=== PATIENT | male | born 1935 | race Caucasian/White ===

== ENCOUNTER 2017-11-03 09:10 | Day surgery (SDC) | payer MEDICARE, MEDICAID ==
[~2017-11-03] VITALS: Ht 175.3 cm; Wt 81.7 kg
[2017-11-03] VITALS (11 sets, daily range): BP systolic 113–150; BP diastolic 57–75
[2017-11-03] MEDS ORDERED: sod bicarbonate 150mEq in D5W 1,150 ML IV ONE (09:30)
[2017-11-03 09:44] LABS: ALBUMIN 3.6 G/DL (3.4-5.0); ANION GAP 5 (8-16); BLOOD UREA NITROGEN 24 MG/DL (7-18); CALCIUM 8.7 MG/DL (8.5-10.1); CHLORIDE 105 MMOL/L (99-107); CREATININE 0.89 MG/DL (0.60-1.10); GLUCOSE 94 MG/DL (70-104); PROTHROMBIN TIME 10.7 SECONDS (9.0-12.0); SODIUM 142 MMOL/L (135-145); eGFR 82 ML/MIN
[2017-11-03 09:45] LABS: BASOPHILS % (AUTO) 0.6 % (0-1); EOSINOPHILS # (AUTO) 0.1 X10'3 (0-0.9); EOSINOPHILS % (AUTO) 2.3 % (0-6); LYMPHOCYTES # (AUTO) 0.8 X10'3 (1.1-4.8); LYMPHOCYTES % (AUTO) 15.1 % (21-51); MEAN CORPUSCULAR HEMOGLOBIN 31.2 PG (27.0-31.0); MEAN CORPUSCULAR HGB CONC 33.4 % (33.0-36.5); MEAN CORPUSCULAR VOLUME 93.5 FL (78-98); MEAN PLATELET VOLUME 8.4 FL (7.4-10.4); MONOCYTES # (AUTO) 0.5 X10'3 (0-0.9); MONOCYTES % (AUTO) 8.4 % (2-12); NEUTROPHILS # (AUTO) 4.1 X10'3 (1.8-7.7); NEUTROPHILS % (AUTO) 73.6 % (42-75); PRE OP HEMATOCRIT 39.6 % (42.0-52.0); PRE OP HEMOGLOBIN 13.2 g/dL (14.0-17.9); PRE OP PLATELET COUNT 188 X10'3 (140-440); RED BLOOD COUNT 4.24 X10'6 (4.70-6.10); RED CELL DISTRIBUTION WIDTH 13.3 % (11.5-14.5)
[2017-11-03] MEDS ORDERED: midazolam 2 mg/2 ml injection ONE (10:30)
[2017-11-03] MEDS ORDERED: AMIO200T40 PO (10:30)
[2017-11-03] MEDS ORDERED: heparin 1,000unit/ml 10ml vial 10 ML ONE (10:31)
[2017-11-03] MEDS ORDERED: iohexol 350MG/ML 100ml bottle IV ONE ×2 (10:31→11:42)
[2017-11-03] MEDS ORDERED: ATOR40TA PO (10:31)
[2017-11-03] MEDS ORDERED: LIDOcaine 1% 30ml preserv. free vial ONE (10:31)
[2017-11-03] MEDS ORDERED: iohexol 350 MG/ML 50ML vial IV ONE (10:31)
[2017-11-03] MEDS ORDERED: fentaNYL/PF 50MCG/1 ML 2ML syringe ONE (10:31)
[2017-11-03] MEDS ORDERED: CLOP75TA15 PO (10:31)
[2017-11-03] MEDS ORDERED: ISOS60TA4 PO (10:33)
[2017-11-03] MEDS ORDERED: FLO0.4C PO (10:34)
[2017-11-03] MEDS ORDERED: normal saline 1000ml 1,000 ML IV ONE (13:25)
== END 2017-11-03 19:20 | disposition home or self-care (01) ==
LOC: SSTAY O 09:10
PROVIDERS: ATTEND Internal Medicine Cardiovascular Disease
DX: I70.213 Atherosclerosis of native arteries of extremities with intermittent claudication, bilateral legs (principal); I25.810 Atherosclerosis of coronary artery bypass graft(s) without angina pectoris; E78.5 Hyperlipidemia, unspecified; I10 Essential (primary) hypertension; M17.0 Bilateral primary osteoarthritis of knee; M16.11 Unilateral primary osteoarthritis, right hip; F03.90 Unspecified dementia, unspecified severity, without behavioral disturbance, psychotic disturbance, mood disturbance, and anxiety; I42.0 Dilated cardiomyopathy; N40.0 Benign prostatic hyperplasia without lower urinary tract symptoms; Z95.0 Presence of cardiac pacemaker; Z95.1 Presence of aortocoronary bypass graft; Z88.1 Allergy status to other antibiotic agents; Z79.01 Long term (current) use of anticoagulants; Z79.899 Other long term (current) drug therapy; Z98.890 Other specified postprocedural states; Z82.49 Family history of ischemic heart disease and other diseases of the circulatory system
CPT/HCPCS: 36415; 37226; 75716; 80048; 85025; 85347; 85610; 93005; A6257; A6258; A6402; A6449; C1760; C1769; C1876; C1894; C2623; J1644; J2250; J3010; J3490; J7030; Q9967; A4620

== ENCOUNTER 2017-11-04 06:27 | Emergency (ER) | payer MEDICARE, MEDICAID ==
[~2017-11-04] VITALS: Ht 175.3 cm; Wt 79.5 kg
[~2017-11-04 06:27] MED LIST: AMIO200T40 PO; ATOR40TA PO; CLOP75TA15 PO; FLO0.4C PO; ISOS60TA4 PO
[2017-11-04 09:02] VITALS: BP 149/90
== END 2017-11-04 09:04 | disposition home or self-care (01) ==
LOC: ER 06:28
DX: L76.22 Postprocedural hemorrhage of skin and subcutaneous tissue following other procedure (principal); Z95.5 Presence of coronary angioplasty implant and graft; Z88.1 Allergy status to other antibiotic agents; Z79.899 Other long term (current) drug therapy
CPT/HCPCS: 99284; A6257; A6449

== ENCOUNTER 2018-12-15 09:26 | Day surgery (SDC) | payer MEDICARE, MEDICAID ==
[2018-12-10 11:22] LABS: CLARITY,URINE CLEAR (Clear); COLOR,URINE YELLOW (Yellow); GLUCOSE, URINE NEGATIVE (Neg); KETONES,URINE NEGATIVE (Neg); LEUKOCYTE ESTERASE ,URINE NEGATIVE (Neg); NITRITES, URINE NEGATIVE (Neg); OCCULT BLOOD,URINE NEGATIVE (Neg); PROTEIN,URINE NEGATIVE (Neg); UROBILINOGEN,URINE 0.2 E.U/dL (0.2-1.0)
[2018-12-10 11:24] LABS: BASOPHILS % (AUTO) 0.7 % (0-1); EOSINOPHILS # (AUTO) 0.1 X10'3 (0-0.9); EOSINOPHILS % (AUTO) 3.4 % (0-6); LYMPHOCYTES # (AUTO) 0.9 X10'3 (1.1-4.8); LYMPHOCYTES % (AUTO) 22.1 % (21-51); MEAN CORPUSCULAR HEMOGLOBIN 31.5 PG (27.0-31.0); MEAN CORPUSCULAR HGB CONC 33.5 g/dL (33.0-36.5); MEAN PLATELET VOLUME 9.4 FL (7.4-10.4); MONOCYTES # (AUTO) 0.4 X10'3 (0-0.9); MONOCYTES % (AUTO) 10.6 % (2-12); NEUTROPHILS # (AUTO) 2.6 X10'3 (1.8-7.7); NEUTROPHILS % (AUTO) 63.2 % (42-75); PRE OP HEMATOCRIT 40.1 % (42.0-52.0); PRE OP HEMOGLOBIN 13.4 g/dL (14.0-17.9); PRE OP PLATELET COUNT 163 X10'3 (140-440); RED BLOOD COUNT 4.26 X10'6 (4.70-6.10); RED CELL DISTRIBUTION WIDTH 13.7 % (11.5-14.5)
[2018-12-10 11:27] LABS: UA COLLECTION TYPE CLN CATCH MIDSTREAM
[2018-12-10 11:50] LABS: ALBUMIN 3.7 G/DL (3.4-5.0); ALBUMIN/GLOBULIN RATIO 1.1 (1.1-1.5); ALKALINE PHOSPHATASE 55 IU/L (46-116); BLOOD UREA NITROGEN 27 MG/DL (7-18); BUN/CREATININE RATIO 26.2 (5.4-32.0); CALCIUM 8.7 MG/DL (8.5-10.1); CHLORIDE 106 MMOL/L (99-107); CREATININE 1.03 MG/DL (0.60-1.10); PRE OP ALT 18 U/L (30-65); PRE OP ANION GAP 6 (8-16); PRE OP AST 18 U/L (10-37); PRE OP BILIRUB, TOTAL 0.4 MG/DL (0.0-1.0); PRE OP GLUCOSE 83 MG/DL (70-104); PRE OP POTASSIUM 4.1 MMOL/L (3.4-5.1); PRE OP SODIUM 143 MMOL/L (135-145); TOTAL CARBON DIOXIDE 30.6 MMOL/L (24-32); TOTAL PROTEIN 7.2 G/DL (6.4-8.2); eGFR 69 ML/MIN
[~2018-12-15] VITALS: Ht 175.3 cm; Wt 77.3 kg
[~2018-12-15 09:26] MED LIST changes: -AMIO200T40 PO; +AMIO200T61 PO; -CLOP75TA15 PO; +DOCU100C40 PO; -ISOS60TA4 PO; +cefazolin/dext.iso 2gm/100 ML IV ONE; +famotidine 20mg tablet PO ONE; +ringers solution, lacted 1,000 ML IV SCH
[2018-12-15 10:15] VITALS: BP 136/65
[2018-12-15 10:18] VITALS: BP 136/65
[2018-12-15] MEDS ORDERED: LIDOcaine 1% 30ml preserv. free vial ONE (12:46)
[2018-12-15] MEDS ORDERED: fentaNYL/PF 50MCG/1 ML 2ML syringe ONE (12:54)
[2018-12-15] MEDS ORDERED: propofol inj 20 ML IV ONE (12:55)
[2018-12-15 13:45] VITALS: BP 145/68
--- NOTE | 2018-12-15 13:45 | NUR ---
CORRECTION , DRESSING IS ON LEFT WRIST NOT RIGHT WRIST
--- NOTE | 2018-12-15 13:45 | NUR ---
Received from OR via BED, accompanied by Anesthesiologist DR [email or web address] and report given by Anesthesiolgist. PATIENT A&OX4, DENIES PAIN, V/S WNL, NEUROVASCULAR CHECKS INTACT, 20G PIV RUE, SCD O, DRESSING TO RIGHT WRIST CDI ELEVATED WITH ICEBAG APPLIED.
[2018-12-15 13:55] VITALS: BP 141/66
[2018-12-15 14:05] VITALS: BP 138/69
[2018-12-15 14:15] VITALS: BP 131/66
--- NOTE | 2018-12-15 14:15 | NUR ---
PATIENT A&OX4, DENIES PAIN, V/S WNL, NEUROVASCULAR CHECKS INTACT, 20G PIV RUE D/C, SCD OFF, DRESSING TO LEFT WRIST CDI . I HAVE REVIEWED D/C INSTRUCTIONS WITH PATIENT AND FAMILY AND THEY HAVE VERBALIZED UNDERSTANDING. PATIENT D/C HOME WITH ALL BELONGINGS AND FAMILY GAVE TRANSPORT HOME.
== END 2018-12-15 14:15 | disposition home or self-care (01) ==
LOC: PAS 09:26
PROVIDERS: ATTEND Surgery
DX: M67.432 Ganglion, left wrist (principal); I10 Essential (primary) hypertension; I25.10 Atherosclerotic heart disease of native coronary artery without angina pectoris; Z95.1 Presence of aortocoronary bypass graft; Z95.0 Presence of cardiac pacemaker; I25.2 Old myocardial infarction; Z88.8 Allergy status to other drugs, medicaments and biological substances; Z79.899 Other long term (current) drug therapy
CPT/HCPCS: 25111; 36415; 80053; 81003; 82948; 85025; 93005; J2001; J2704; J3010; A4215; A6250; A6449; J7120

== ENCOUNTER → 2019-06-11 | Outpatient (CLI) | payer MEDICARE, MEDICAID ==
[~2019-06-11] MED LIST changes: -cefazolin/dext.iso 2gm/100 ML IV ONE; -famotidine 20mg tablet PO ONE; -ringers solution, lacted 1,000 ML IV SCH
== END | disposition home or self-care (01) ==
LOC: 64 CT 13:27
PROVIDERS: ATTEND Internal Medicine Cardiovascular Disease
DX: I63.9 Cerebral infarction, unspecified (principal); R47.01 Aphasia; M62.81 Muscle weakness (generalized)
CPT/HCPCS: 70450